=== PATIENT | female | born 1990 | race Caucasian/White ===

== ENCOUNTER 2017-07-22 10:25 | Emergency (ER) | payer OTHER ==
[~2017-07-22] VITALS: Ht 172.7 cm; Wt 80.2 kg
[2017-07-22 10:37] VITALS: BP 105/69
[2017-07-22 11:25] LABS: HEMATOCRIT 40.8 % (34.6-47.8); HEMOGLOBIN 14.1 g/dL (11.7-16.4); WHITE BLOOD COUNT 6.1 x10^3/uL (3.4-10)
[2017-07-22] MEDS ORDERED: ONDANSETRON 2MG/ML, 2ML IVPush ONE (11:30)
[2017-07-22] MEDS ORDERED: SODIUM CHLORIDE 0.9% 1,000ML IV ONE (11:30)
[2017-07-22] MEDS ORDERED: KETOROLAC 30 MG/1 ML IVPush ONE (11:30)
[2017-07-22] MEDS ORDERED: MORPHINE SULFATE 4 MG/ML, 1ML IVPush PRN (11:30)
[2017-07-22] MEDS ORDERED: SODIUM CHLORIDE FLUSH 10ML SYR IVF ONE (11:30)
[2017-07-22 11:37] LABS: BLOOD UREA NITROGEN 11 mg/dL (7-18)
[2017-07-22] MEDS ORDERED: KETOROLAC 30 MG/1 ML ONE (11:44)
[2017-07-22] MEDS ORDERED: ONDANSETRON 2MG/ML, 2ML ONE (11:44)
== END 2017-07-22 14:06 ==
LOC: ED 13:39
DX: M54.9 Dorsalgia, unspecified (principal); R11.0 Nausea; R35.0 Frequency of micturition; R63.0 Anorexia; Z88.0 Allergy status to penicillin
CPT/HCPCS: 36415; 74176; 80048; 81001; 82040; 84703; 85025; 87086; 96361; 96374; 96375; 99285; J1885; J2405; J7030

== ENCOUNTER → 2018-11-22 | Outpatient (CLI) | payer OTHER | END | disposition home or self-care (01) | LOC: CFH 08:28 | PROVIDERS: ATTEND Obstetrics & Gynecology | DX: N64.4 Mastodynia (principal) | CPT/HCPCS: 76642 ==